=== PATIENT | female | born 1965 | race Caucasian/White ===

== ENCOUNTER → 2016-09-26 | Outpatient (CLI) | payer BC | END | disposition home or self-care (01) | LOC: MAMMO 09:02 | PROVIDERS: ATTEND Family Medicine | DX: Z12.31 Encounter for screening mammogram for malignant neoplasm of breast (principal); D25.0 Submucous leiomyoma of uterus; N92.0 Excessive and frequent menstruation with regular cycle | CPT/HCPCS: 76830; 76856; G0202 ==

== ENCOUNTER → 2016-11-04 | Outpatient (CLI) | payer BC | END | disposition home or self-care (01) | LOC: MAMMO 06:56 | PROVIDERS: ATTEND Family Medicine | DX: N63 Unspecified lump in breast (principal) | CPT/HCPCS: 76642; G0204 ==

== ENCOUNTER → 2017-11-04 | Outpatient (CLI) | payer BC | END | disposition home or self-care (01) | LOC: MAMMO 09:25 | PROVIDERS: ATTEND Family Medicine | DX: Z12.31 Encounter for screening mammogram for malignant neoplasm of breast (principal) | CPT/HCPCS: 77067 ==

== ENCOUNTER → 2019-11-28 | Outpatient (CLI) | payer BC | END | disposition home or self-care (01) | LOC: LAB 12:00 | PROVIDERS: ATTEND Family Medicine | DX: Z20.828 Contact with and (suspected) exposure to other viral communicable diseases (principal) | CPT/HCPCS: 87635; C9803 ==

== ENCOUNTER → 2020-11-15 | Outpatient (CLI) | payer BC | END | disposition home or self-care (01) | LOC: CT 11:59 | PROVIDERS: ATTEND Specialist | DX: N20.0 Calculus of kidney (principal); K44.9 Diaphragmatic hernia without obstruction or gangrene; K42.9 Umbilical hernia without obstruction or gangrene; K82.0 Obstruction of gallbladder | CPT/HCPCS: 74176 ==